=== PATIENT | male | born 1945 | race Hispanic/Latino ===

== ENCOUNTER 2021-12-11 17:24 | Inpatient (IN) | payer MEDICARE ==
[2021-12-11] MEDS ORDERED: SODIUM CHLORIDE 0.9% 1000 ML 1,000 ML IV ONE ×2 (18:54→19:05)
--- NOTE | 2021-12-11 19:17 | XRay Report ---
CHEST 1 VIEW 12/11/2021 7:02 PM INDICATION / CLINICAL INFORMATION: Lightheadedness/Dizziness. COMPARISON: None available. FINDINGS: SUPPORT DEVICES: None. HEART / MEDIASTINUM: No significant abnormality. LUNGS / PLEURA: Bilateral lower lobe opacities. Mild elevation right hemidiaphragm No pneumothorax. Signer Name: Justus Pandey MD Signed: 12/11/2021 7:13 PM Workstation Name: [id number]
[2021-12-11 20:06] LABS: Mean Corpuscular HGB Conc 31 % (32-34); Mean Corpuscular Volume 107 fl (84-94); Platelet Count 132 K/mm3 (140-440); Red Blood Count 4.05 M/mm3 (3.65-5.03)
[2021-12-11 20:07] LABS: Hematocrit 43.4 % (35.5-45.6); Hemoglobin 13.3 gm/dl (11.8-15.2)
--- NOTE | 2021-12-11 20:25 | Emergency Department Report ---
<SONI JERNIGAN - Last Filed: 12/11/21 20:23> ED General Adult HPI - General Chief complaint: Hyperglycemia Stated complaint: AMS/HBS/HYPOTENSION Time Seen by Provider: 12/11/21 19:05 Source: EMS Mode of arrival: Stretcher Limitations: Altered Mental Status, Physical Limitation - History of Present Illness Initial comments: Patient is a 76-year-old male brought in by EMS from hospice for hyperglycemia and tachycardia. Severity scale (0 -10): 0 - Related Data Allergies Allergy/AdvReac Type Severity Reaction Status Date / Time No Known Allergies Allergy Verified 12/11/21 18:29 ED Review of Systems Comment: Unobtainable due to pts medical conditions ED Past Medical Hx - Past Medical History Hx Diabetes: Yes Hx of Cancer: Yes (prostate) Hx Psychiatric Treatment: Yes (bipolar, dipression) Additional medical history: apashia,hemiplegia,epilepsy - Surgical History Additional Surgical History: gtube - Social History Smoking Status: Unknown if ever smoked ED Physical Exam - General Limitations: Altered Mental Status, Physical Limitation General appearance: obtunded - Head Head exam: Present: atraumatic, normocephalic - Respiratory Respiratory exam: Present: other (Kussmaul's respirations) - Cardiovascular Cardiovascular Exam: Present: normal rhythm, tachycardia, normal heart sounds - GI/Abdominal GI/Abdominal exam: Present: soft. Absent: distended - Rectal Rectal exam: Present: deferred - Neurological Exam Neurological exam: Present: altered, other (Patient disoriented) - Skin Skin exam: Present: warm, dry, intact, normal color ED Medical Decision Making - Lab Data Result diagrams: 12/11/21 19:27 ED Disposition Clinical Impression: DKA (diabetic ketoacidosis), HHS (hypothenar hammer syndrome), Pneumonia Disposition: 09 ADMITTED INPATIENT Condition: Stable Instructions: Diabetic Ketoacidosis (ED), Bacterial Pneumonia (ED) Referrals: PRIMARY CARE,MD [Primary Care Provider] - 3-5 Days <CHAGO GONZALES - Last Filed: 12/12/21 05:08> ED Review of Systems ROS: Stated complaint: AMS/HBS/HYPOTENSION Other details as noted in HPI ED Course Vital Signs 12/11/21 12/11/21 12/11/21 18:01 18:16 18:24 Temperature 97.9 F Pulse Rate 92 H 133 H 134 H Respiratory 54 H 56 H 35 H Rate Blood Pressure 110/65 Blood Pressure 93/59 [Left] O2 Sat by Pulse 90 92 Oximetry 12/11/21 12/11/21 12/11/21 18:30 18:46 18:54 Temperature Pulse Rate 134 H 133 H Respiratory 54 H 55 H Rate Blood Pressure 110/65 106/67 Blood Pressure [Left] O2 Sat by Pulse 90 90 99 Oximetry 12/11/21 12/11/21 12/11/21 19:00 19:16 19:28 Temperature Pulse Rate 133 H 134 H Respiratory 49 H 51 H 26 H Rate Blood Pressure 106/67 115/67 Blood Pressure [Left] O2 Sat by Pulse 90 91 93 Oximetry 12/11/21 12/11/21 12/11/21 19:30 19:46 20:00 Temperature Pulse Rate 134 H 141 H 133 H Respiratory 37 H 46 H 46 H Rate Blood Pressure 115/67 109/63 109/63 Blood Pressure [Left] O2 Sat by Pulse 91 91 91 Oximetry 12/11/21 12/11/21 12/11/21 20:16 20:22 20:30 Temperature Pulse Rate 133 H 132 H 133 H Respiratory 53 H 50 H 50 H Rate Blood Pressure 116/69 116/69 116/69 Blood Pressure [Left] O2 Sat by Pulse 91 91 91 Oximetry 12/11/21 12/11/21 12/11/21 20:46 21:00 21:16 Temperature Pulse Rate 131 H 130 H 129 H Respiratory 39 H 49 H 41 H Rate Blood Pressure 115/92 115/92 110/56 Blood Pressure [Left] O2 Sat by Pulse 91 90 91 Oximetry 12/11/21 12/11/21 12/11/21 21:30 21:46 22:00 Temperature Pulse Rate 130 H 127 H Respiratory 30 H 45 H 47 H Rate Blood Pressure 110/56 104/61 104/61 Blood Pressure [Left] O2 Sat by Pulse 91 92 92 Oximetry 12/11/21 12/11/21 12/11/21 22:16 22:30 22:46 Temperature Pulse Rate 127 H 127 H 127 H Respiratory 48 H 44 H 50 H Rate Blood Pressure 91/56 91/56 94/47 Blood Pressure [Left] O2 Sat by Pulse 93 94 93 Oximetry 12/11/21 12/11/21 12/11/21 23:00 23:16 23:30 Temperature Pulse Rate 128 H 128 H 127 H Respiratory 50 H 42 H 52 H Rate Blood Pressure 94/47 113/89 113/89 Blood Pressure [Left] O2 Sat by Pulse 93 87 90 Oximetry 12/11/21 12/12/21 12/12/21 23:45 00:00 00:15 Temperature Pulse Rate 128 H 128 H 127 H Respiratory 34 H 44 H 39 H Rate Blood Pressure 152/124 152/124 160/128 Blood Pressure [Left] O2 Sat by Pulse 93 91 80 L Oximetry 12/12/21 12/12/21 12/12/21 00:30 00:45 01:00 Temperature Pulse Rate 128 H 128 H 130 H Respiratory 45 H 38 H 53 H Rate Blood Pressure 113/89 172/131 172/131 Blood Pressure [Left] O2 Sat by Pulse 91 88 90 Oximetry 12/12/21 12/12/21 12/12/21 01:16 01:30 01:46 Temperature Pulse Rate 136 H 127 H 126 H Respiratory 50 H 42 H 52 H Rate Blood Pressure 172/131 172/131 213/191 Blood Pressure [Left] O2 Sat by Pulse 88 89 90 Oximetry 12/12/21 12/12/21 12/12/21 02:00 02:16 02:30 Temperature Pulse Rate 127 H 126 H 127 H Respiratory 47 H 54 H 46 H Rate Blood Pressure 213/191 213/191 213/191 Blood Pressure [Left] O2 Sat by Pulse 86 88 90 Oximetry 12/12/21 12/12/21 12/12/21 02:46 02:52 03:00 Temperature Pulse Rate 126 H 127 H 94 H Respiratory 50 H 45 H Rate Blood Pressure 213/191 213/182 72/39 Blood Pressure [Left] O2 Sat by Pulse 91 94 Oximetry 12/12/21 03:16 Temperature Pulse Rate 98 H Respiratory 42 H Rate Blood Pressure 72/39 Blood Pressure [Left] O2 Sat by Pulse 94 Oximetry - Reevaluation(s) Reevaluation #1: 12/11/21 21:51 SIGNED OUT FROM MY [place] IS THIS IS A DNR PATIENT FROM HOSPICE BROUGHT IN DUE TO AMS AND ELEVATED GLUCOSE. I HAVE SEEN THE PATIENT MYSELF W/ DR. Osborn AT BEDSIDE; PATIENT AOX0 GCS3. I IMMEDIATELY GOT ON THE PHONE WITH DENNISE SARMIENTO (IN [place]) WHO STATES DNR/I. PER DENNISE, THE HOSPICE PHYSICIAN AND NURSE FOUND PATIENT TO BE IN 'DISTRESS' AND CONFUSED WITH ELEVATED GLUCOSE AND FELT IF PATIENT COMES TO THE HOSPITAL TO BRING THE GLUCOSE DOWN, PATIENT WILL BE LESS DISTRESS. PER DENNISE, THE DECISI ON WAS NOT DISCUSSED WITH HER FIRST BUT LATER WHEN HE WAS IN THE HOSPITAL. PER DENNISE, THEY WILL HOLD THE HOSPICE BED FOR HIM WHEN HE IS READY TO COME BACK. DENNISE STATES THIS APPEARS TO BE ACUTE ONSET PATIENT WAS ALERT AND ORIENTED LAST WEEK AND 'NOT' IN THE PROCESS OF DYING YET FOR HOSPICE. DENNISE WOULD LIKE PATIENT BE ADMITTED AND SEE IF LOWERING THE GLUCOSE WOULD HELP HIS CURRENT STAT E BUT IF IT DOESN'T HELP, GET BACK TO DENNISE AND HAVE PATIENT SEND BACK TO HOSPICE. PENDING REST OF LABS TO RETURN AND THEN I WILL TALK TO HOSPITALIST. - JANET 12/11/21 22:46 SPOKE TO HOSPITALIST REGARDING THE SITUATION; WE WILL ATTEMPT TO BRING THE GLUCOSE DOWN IN THE ER TO SEE IF HE CAN BE DISCHARGED. LOOKING AT PATIENT'S LAB; I WILL CHANGE NS TO LR IMMEDIATELY. PATIENT CONTINUE ON INSULIN DRIP PROTOCOL. RN INFORMED TO CHECK GLUCOSE Q1H AND THEN BMP/MG Q2H. I WILL CONTINUE TO MONITOR. 12/12/21 00:19 ATTEMPTED TO CALL DENNISE AND LET HER KNOW THE PLAN; NO ONE PICKED UP. I WILL CALL AGAIN LATER. 12/12/21 00:44 RN BROUGHT TO MY ATTENTION THAT PATIENT'S BMP; GLUCOSE JUST CAME BACK TO BE IN 900S STILL. PER NURSE, SHE JUST GAVE 10U SQ REGULAR WELL. PER PROTOCOL, WILL GO TO THE NEXT INSULIN COLUMN WHICH IS FROM 11 TO 16 UNITES. NURSE ALSO STATES PATIENT HAVE RECEIVED 1L NS AND NOW IS GETTING 1ST LITER OF LR. I HAVE INFORMED RN TO CONTINUE AND I WILL UPDATE THE DAUGHTER, DENNISE. IF NEXT BLOOD DRAW, THE GLUCOSE DOESN'T DOWN TREND, I WILL CALL HOSPITALIST. CORRECTION; I WILL DISREGARD OUR PROTOL. PER [facility] PATIENT WE WILL DO 500ML/HR CONTINUOUS OF .45% NS AND ALSO 18UNITES NOW PATIENT'S WEIGHT BASE IS 0.1U/KG/HR BUT IF NO IMPROVEMENT, TO DOUBLE THE INSULIN. RN INFORMED. ATTEMPTED TO CALL DAUGHTER ON THE UPDATE BUT NO COMPUTER METEOROLOGIST. I HAVE LEFT VOICE MESSAGE FOR HER TO CALL ME BACK AT [phone]. 12/12/21 00:52 12/12/21 03:14 AFTER DOUBLING THE INSULIN; GLUCOSE NOW IN 492 BUT STILL GAP OF 24; GLUCOSE DOWN TRENDING WITH HAGMA. I WILL OFFICIALLY CALL THE HOSPITALIST NOW AND ALSO LET ICU PHYSICIAN KNOW ABOUT THIS PATIENT. 12/12/21 03:15 ED Medical Decision Making - Lab Data Result diagrams: 12/11/21 19:27 12/12/21 03:25 Critical Care Time: Yes Critical care time in (mins) excluding proc time.: 76 Critical care attestation.: If time is entered above; I have spent that time in minutes in the direct care of this critically ill patient, excluding procedure time. ED Disposition Is pt being admited?: Yes Does the pt Need Aspirin: No Time of Disposition: 03:16
[2021-12-11 20:35] LABS: Alanine Aminotransferase 46 units/L (7-56); Albumin 2.9 g/dL (3.9-5); BUN/Creatinine Ratio 44; Blood Urea Nitrogen 97 mg/dL (9-20); Calcium 8.7 mg/dL (8.4-10.2); Hemolysis Index 2
[2021-12-11] MEDS ORDERED: DEXTROSE 50% IN WATER (25GM) 50 ML SYRINGE IV PRN (20:45)
[2021-12-11] MEDS ORDERED: INSULIN REGULAR, HUMAN 100 UNITS in SODIUM CHLORIDE 0.9% 99 ML IV SCH (21:00)
[2021-12-11] MEDS ORDERED: INSULIN REGULAR, HUMAN 100 UNITS/1 ML SUB-Q ONE (23:53)
[2021-12-11] MEDS ORDERED: LACTATED RINGERS 2,000 ML IV ONE (23:54)
[2021-12-11 23:58] LABS: ABG HCO3 23.3 mmol/L (20.0-26.0); ABG Methemoglobin 0.4 % (0.0-1.5); ABG Oxygen Saturation 97.3 % (95.0-99.0); ABG PCO2 42.1 mm Hg; ABG PH 7.361 pH Units (7.350-7.450); ABG PO2 66.4 mm Hg (80.0-90.0)
[2021-12-12 00:23] LABS: Anisocytosis 1+; Band Neutrophils # (Manual) 1.2 K/mm3; Basophils % (Manual) 0 % (0.0-1.8); Eosinophils % (Manual) 0 % (0.0-4.3); Macrocytosis 1+; Platelet Estimate Consistent w Auto; Total Cells Counted 100
[2021-12-12 00:28] LABS: Calcium 7.8 mg/dL (8.4-10.2)
[2021-12-12] MEDS ORDERED: SODIUM CHLORIDE 0.45% IV SCH (01:00)
[2021-12-12 01:38] LABS: Alanine Aminotransferase 12 units/L (7-56); Albumin 5.1 g/dL (3.9-5); Blood Urea Nitrogen 17 mg/dL (9-20); Hemolysis Index 13
[2021-12-12 01:47] LABS: BUN/Creatinine Ratio 24
[2021-12-12 04:08] LABS: Albumin 2.6 g/dL (3.9-5); Calcium 7.8 mg/dL (8.4-10.2)
[2021-12-12] MEDS ORDERED: ACETAMINOPHEN 650 MG RECT SUPP PR PRN ×2 (04:18→06:32)
[2021-12-12] MEDS ORDERED: MAGNESIUM HYDROXIDE (MOM) ORAL LIQD UDC PO PRN (04:18)
[2021-12-12] MEDS ORDERED: MORPHINE 2 MG/1 ML INJ IV PRN ×2 (04:18→06:32)
[2021-12-12] MEDS ORDERED: ONDANSETRON 4 MG/2 ML INJ IV PRN (04:18)
[2021-12-12] MEDS ORDERED: SODIUM CHLORIDE 0.9% 1000 ML 1,000 ML IV SCH ×2 (04:30→11:00)
--- NOTE | 2021-12-12 04:36 | History and Physical Report ---
History of Present Illness Date of examination: 12/12/21 Date of admission: 12/12/2021 Chief complaint: Elevated blood glucose Tachycardia History of present illness: 76-year-old male resident with known history of diabetes mellitus, bipolar disorder who is currently on hospice brought into the emergency room via EMS today for elevated blood glucose and tachycardia. Most of the history was obtained from the ER staff as patient is unable to give any history at this time Evaluation in the emergency room reveals a blood glucose in the 900s. Patient was found to be in DKA. He has been started on insulin drip and IV fluid. Daughter has the power of corporate associate attorney and indicates that patient is a DNR. Past History Past Medical History: diabetes, other (Prostate cancer, bipolar disorder) Past Surgical History: Other (G-tube placement) Social history: other (Unobtainable) Family history: other (Unobtainable) Medications and Allergies Allergies Allergy/AdvReac Type Severity Reaction Status Date / Time No Known Allergies Allergy Verified 12/11/21 18:29 Active Meds: Active Medications Acetaminophen (Acetaminophen 650 Mg Rect Supp) [address] Q6H PRN PRN Reason: Pain MILD(1-3)/Fever >100.5/MORGAN Dextrose (Dextrose 50% In Water (25gm) 50 Ml Syringe) 0 ml IV Q30MIN PRN; Pro tocol PRN Reason: Hypoglycemia Insulin Human Regular 100 (units/ Sodium Chloride) 100 mls @ 9 mls/hr IV TITR OSMAN; Protocol Last Titration: 12/12/21 03:20 Dose: 8 units/hr, 8 mls/hr Sodium Chloride (Nacl 0.45% 1000 Ml) 2,000 mls @ 500 mls/hr IV DIRECT OSMAN Stop: 12/12/21 04:59 Sodium Chloride (Nacl 0.9% 1000 Ml) 1,000 mls @ 150 mls/hr IV DIRECT OSMAN Potassium Chloride/Dextrose/Sod Cl (D5w/0.45% Nacl/Kcl 20 Meq) 20 meq in 1,000 mls @ 125 mls/hr IV DIRECT OSMAN Magnesium Hydroxide (Magnesium Hydroxide (Mom) Oral Liqd Udc) 30 ml PO Q4H PRN PRN Reason: Constipation Morphine Sulfate (Morphine 2 Mg/1 Ml Inj) 2 mg IV Q4H PRN PRN Reason: Pain, Moderate (4-6) Ondansetron HCl (Ondansetron 4 Mg/2 Ml Inj) 4 mg IV Q8H PRN PRN Reason: Nausea And Vomiting Sodium Chloride (Sodium Chloride 0.9% 10 Ml Flush Syringe) 10 ml IV BID OSMAN Sodium Chloride (Sodium Chloride 0.9% 10 Ml Flush Syringe) 10 ml IV PRN PRN PRN Reason: LINE FLUSH Review of Systems ROS unobtainable: due to mental status Exam - Constitutional Vitals: Temp Pulse Resp BP Pulse Ox 97.9 F 98 H 42 H 72/39 94 12/11/21 18:24 12/12/21 03:16 12/12/21 03:16 12/12/21 03:16 12/12/21 03:16 General appearance: Present: no acute distress, well-nourished - EENT Eyes: Present: PERRL, EOM intact. Absent: scleral icterus ENT: hearing intact, clear oral mucosa, dentition normal - Neck Neck: Present: supple, normal ROM - Respiratory Respiratory effort: normal Respiratory: bilateral: CTA - Cardiovascular Rhythm: regular Heart Sounds: Present: S1 & S2. Absent: gallop, systolic murmur, diastolic murmur, rub, click - Extremities Extremities: no ischemia, pulses intact, pulses symmetrical, No edema, normal temperature, normal color, Full ROM Peripheral Pulses: within normal limits - Abdominal General gastrointestinal: Present: soft, non-tender, non-distended, normal bowel sounds. Absent: mass - Integumentary Integumentary: Present: clear, warm, dry, normal turgor. Absent: rash - Musculoskeletal Musculoskeletal: strength equal bilaterally - Psychiatric Psychiatric: cooperative - Neurologic Neurologic: no focal deficits, moves all extremities, other (Confused) HEART Score - HEART Score Troponin: Troponin T < 0.010 ng/mL (0.00-0.029) 12/11/21 19:27 Results - Labs CBC & Chem 7: 12/11/21 19:27 12/12/21 03:25 Labs: Abnormal lab results 12/11/21 12/11/21 12/11/21 Range/Units 19:00 19:27 19:27 WBC 17.1 H (4.5-11.0) K/mm3 MCV 107 H (84-94) fl MCH 33 H (28-32) pg MCHC 31 L (32-34) % RDW 16.0 H (13.2-15.2) % Plt Count 132 L (140-440) K/mm3 Seg Neuts % (Manual) 84.0 H (40.0-70.0) % Lymphocytes % (Manual) 5.0 L (13.4-35.0) % Seg Neutrophils # Man 14.4 H (1.8-7.7) K/mm3 Lymphocytes # (Manual) 0.9 L (1.2-5.4) K/mm3 ABG pO2 (80.0-90.0) mm Hg ABG Hemoglobin (14.0-18.0) gm/dl Sodium 159 H (137-145) mmol/L Potassium 5.1 H (3.6-5.0) mmol/L Chloride 115.2 H (98-107) mmol/L Carbon Dioxide (22-30) mmol/L BUN 97 H (9-20) mg/dL Creatinine 2.2 H (0.8-1.3) mg/dL Glucose 910 H* (75-100) mg/dL POC Glucose > 600 H (70-105) mg/dL Lactic Acid (0.7-2.0) mmol/L Calcium (8.4-10.2) mg/dL Phosphorus (2.5-4.5) mg/dL Magnesium (1.7-2.3) mg/dL AST 51 H (5-40) units/L Alkaline Phosphatase 160 H (35-129) units/L Total Protein 5.8 L (6.3-8.2) g/dL Albumin 2.9 L (3.9-5) g/dL 12/11/21 12/11/21 12/11/21 Range/Units 19:27 22:38 23:22 WBC (4.5-11.0) K/mm3 MCV (84-94) fl MCH (28-32) pg MCHC (32-34) % RDW (13.2-15.2) % Plt Count (140-440) K/mm3 Seg Neuts % (Manual) (40.0-70.0) % Lymphocytes % (Manual) (13.4-35.0) % Seg Neutrophils # Man (1.8-7.7) K/mm3 Lymphocytes # (Manual) (1.2-5.4) K/mm3 ABG pO2 (80.0-90.0) mm Hg ABG Hemoglobin (14.0-18.0) gm/dl Sodium 159 H (137-145) mmol/L Potassium 5.2 H (3.6-5.0) mmol/L Chloride 117.6 H (98-107) mmol/L Carbon Dioxide (22-30) mmol/L BUN 103 H (9-20) mg/dL Creatinine 2.2 H (0.8-1.3) mg/dL Glucose 938 H* (75-100) mg/dL POC Glucose > 600 H (70-105) mg/dL Lactic Acid 2.90 H* (0.7-2.0) mmol/L Calcium 7.8 L (8.4-10.2) mg/dL Phosphorus 4.90 H (2.5-4.5) mg/dL Magnesium 3.00 H (1.7-2.3) mg/dL AST (5-40) units/L Alkaline Phosphatase (35-129) units/L Total Protein (6.3-8.2) g/dL Albumin (3.9-5) g/dL 12/11/21 12/11/21 12/12/21 Range/Units 23:22 23:40 00:23 WBC (4.5-11.0) K/mm3 MCV (84-94) fl MCH (28-32) pg MCHC (32-34) % RDW (13.2-15.2) % Plt Count (140-440) K/mm3 Seg Neuts % (Manual) (40.0-70.0) % Lymphocytes % (Manual) (13.4-35.0) % Seg Neutrophils # Man (1.8-7.7) K/mm3 Lymphocytes # (Manual) (1.2-5.4) K/mm3 ABG pO2 66.4 L (80.0-90.0) mm Hg ABG Hemoglobin 9.3 L (14.0-18.0) gm/dl Sodium (137-145) mmol/L Potassium (3.6-5.0) mmol/L Chloride (98-107) mmol/L Carbon Dioxide 21 L (22-30) mmol/L BUN (9-20) mg/dL Creatinine 0.7 L D (0.8-1.3) mg/dL Glucose 492 H (75-100) mg/dL POC Glucose (70-105) mg/dL Lactic Acid 3.00 H* (0.7-2.0) mmol/L Calcium (8.4-10.2) mg/dL Phosphorus (2.5-4.5) mg/dL Magnesium (1.7-2.3) mg/dL AST (5-40) units/L Alkaline Phosphatase 683 H (35-129) units/L Total Protein (6.3-8.2) g/dL Albumin 5.1 H (3.9-5) g/dL 12/12/21 12/12/21 Range/Units 03:25 03:25 WBC (4.5-11.0) K/mm3 MCV (84-94) fl MCH (28-32) pg MCHC (32-34) % RDW (13.2-15.2) % Plt Count (140-440) K/mm3 Seg Neuts % (Manual) (40.0-70.0) % Lymphocytes % (Manual) (13.4-35.0) % Seg Neutrophils # Man (1.8-7.7) K/mm3 Lymphocytes # (Manual) (1.2-5.4) K/mm3 ABG pO2 (80.0-90.0) mm Hg ABG Hemoglobin (14.0-18.0) gm/dl Sodium 157 H D (137-145) mmol/L Potassium (3.6-5.0) mmol/L Chloride 117.9 H (98-107) mmol/L Carbon Dioxide (22-30) mmol/L BUN 105 H (9-20) mg/dL Creatinine 2.6 H D (0.8-1.3) mg/dL Glucose 643 H* (75-100) mg/dL POC Glucose (70-105) mg/dL Lactic Acid 5.30 H* (0.7-2.0) mmol/L Calcium 7.8 L D (8.4-10.2) mg/dL Phosphorus (2.5-4.5) mg/dL Magnesium (1.7-2.3) mg/dL AST (5-40) units/L Alkaline Phosphatase 134 H (35-129) units/L Total Protein 5.1 L D (6.3-8.2) g/dL Albumin 2.6 L (3.9-5) g/dL Assessment and Plan Assessment: 1.DKA 2.Tachycardia 3.Confusion 4. History of bipolar disorder Plan: 1.Admitted and placed on insulin drip and fluid 2.Will monitor glucose closely 3. We will resume routine home medications once reconciled. DVT Prophylaxis:SQ Heparin COde Status: DNR
[2021-12-12] MEDS ORDERED: D5W/0.45% NACL/KCL 20 MEQ 20 MEQ/1,000 ML BAG IV SCH (05:00)
[2021-12-12] MEDS ORDERED: MORPHINE 4 MG/1 ML INJ IV PRN (06:32)
[2021-12-12 07:25] LABS: Calcium 8.1 mg/dL (8.4-10.2)
[2021-12-12] MEDS ORDERED: SODIUM CHLORIDE 0.9% 1000 ML 2,000 ML IV ONE (07:35)
[2021-12-12] MEDS ORDERED: SODIUM CHLORIDE 0.9% 1000 ML 2,000 ML IV SCH (08:00)
--- NOTE | 2021-12-12 08:51 | Consultation ---
History of Present Illness Consult date: 12/12/21 Requesting physician: JANET LAU Reason for consult: other (DKA, Metabolic encephalopathy) History of present illness: 76-year-old male resident with known history of diabetes mellitus, bipolar disorder who is currently on hospice brought into the emergency room via EMS today for elevated blood glucose and tachycardia. Most of the history was obtained from the ER staff as patient is unable to give any history at this time Evaluation in the emergency room reveals a blood glucose in the 900s. Patient was found to be in DKA. He has been started on insulin drip and IV fluid. Labs showed leukocytosis. Patient has been having fever of 102.5 F. UA did not reveal any significant pyuria. Chest x-ray showed possible bilateral pneumonia. Altered, unable to provide history. A critical care consult was placed to facilitate admission to the ICU Patient seen and examined in the ED Past History Past Medical History: diabetes, other (Prostate cancer, bipolar disorder) Past Surgical History: Other (G-tube placement) Social history: other (Unobtainable) Family history: other (Unobtainable) Medications and Allergies Allergies Allergy/AdvReac Type Severity Reaction Status Date / Time No Known Allergies Allergy Verified 12/11/21 18:29 Active Meds: Active Medications Acetaminophen (Acetaminophen 650 Mg Rect Supp) 650 mg [place] Q6H PRN PRN Reason: Pain MILD(1-3)/Fever >100.5/MORGAN Last Admin: 12/12/21 08:24 Dose: 650 mg Dextrose (Dextrose 50% In Water (25gm) 50 Ml Syringe) 0 ml IV Q30MIN PRN; Protocol PRN Reason: Hypoglycemia Insulin Human Regular 100 (units/ Sodium Chloride) 100 mls @ 9 mls/hr IV TITR OSMAN; Protocol Last Titration: 12/12/21 07:51 Dose: 3 units/hr, 3 mls/hr Sodium Chloride (Nacl 0.9% 1000 Ml) 1,000 mls @ 150 mls/hr IV DIRECT OSMAN Potassium Chloride/Dextrose/Sod Cl (D5w/0.45% Nacl/Kcl 20 Meq) 20 meq in 1,000 mls @ 125 mls/hr IV DIRECT OSMAN Sodium Chloride (Nacl 0.9% 1000 Ml) 2,000 mls @ 999 mls/hr IV BOLUS OSMAN Stop: 12/12/21 10:35 Magnesium Hydroxide (Magnesium Hydroxide (Mom) Oral Liqd Udc) 30 ml PO Q4H PRN PRN Reason: Constipation Morphine Sulfate (Morphine 2 Mg/1 Ml Inj) 2 mg IV Q4H PRN PRN Reason: Pain, Moderate (4-6) Morphine Sulfate (Morphine 4 Mg/1 Ml Inj) 4 mg IV Q4H PRN PRN Reason: Pain , Severe (7-10) Ondansetron HCl (Ondansetron 4 Mg/2 Ml Inj) 4 mg IV Q8H PRN PRN Reason: Nausea And Vomiting Sodium Chloride (Sodium Chloride 0.9% 10 Ml Flush Syringe) 10 ml IV BID OSMAN Sodium Chloride (Sodium Chloride 0.9% 10 Ml Flush Syringe) 10 ml IV PRN PRN PRN Reason: LINE FLUSH Review of Systems ROS unobtainable: due to mental status Physical Examination Vital signs: Vital Signs Pulse Resp 92 H 54 H 12/11/21 18:01 12/11/21 18:01 General appearance: appears uncomfortable, other (minimally responsive) Eyes: non-icteric ENT: oropharynx dry Neck: supple, no lymphadenopathy, no JVD Effort: mildly labored Ascultation: Bilateral: diminished breath sounds Cardiovascular: regular rate and rhythm, other (S1,S2) Gastrointestinal: normoactive bowel sounds, soft, non-tender Integumentary: other (dry) Extremities: no cyanosis, no edema, pulses normal pupils equal and round, unable to assess Results - Laboratory Findings CBC and BMP: 12/13/21 04:29 12/13/21 04:29 ABG ABG pH 7.361 pH Units (7.350-7.450) 12/11/21 23:40 ABG pCO2 42.1 mm Hg 12/11/21 23:40 ABG pO2 66.4 mm Hg (80.0-90.0) L 12/11/21 23:40 ABG O2 Saturation 97.3 % (95.0-99.0) 12/11/21 23:40 Abnormal lab findings: Abnormal Labs 12/11/21 12/11/21 12/11/21 19:00 19:27 19:27 WBC 17.1 H MCV 107 H MCH 33 H MCHC 31 L RDW 16.0 H Plt Count 132 L Seg Neuts % (Manual) 84.0 H Lymphocytes % (Manual) 5.0 L Seg Neutrophils # Man 14.4 H Lymphocytes # (Manual) 0.9 L ABG pO2 ABG Hemoglobin Sodium 159 H Potassium 5.1 H Chloride 115.2 H Carbon Dioxide BUN 97 H Creatinine 2.2 H Glucose 910 H* POC Glucose > 600 H Lactic Acid Calcium Phosphorus Magnesium AST 51 H Alkaline Phosphatase 160 H Total Protein 5.8 L Albumin 2.9 L 12/11/21 12/11/21 12/11/21 19:27 22:38 23:22 WBC MCV MCH MCHC RDW Plt Count Seg Neuts % (Manual) Lymphocytes % (Manual) Seg Neutrophils # Man Lymphocytes # (Manual) ABG pO2 ABG Hemoglobin Sodium 159 H Potassium 5.2 H Chloride 117.6 H Carbon Dioxide BUN 103 H Creatinine 2.2 H Glucose 938 H* POC Glucose > 600 H Lactic Acid 2.90 H* Calcium 7.8 L Phosphorus 4.90 H Magnesium 3.00 H AST Alkaline Phosphatase Total Protein Albumin 12/11/21 12/11/21 12/12/21 23:22 23:40 00:05 WBC MCV MCH MCHC RDW Plt Count Seg Neuts % (Manual) Lymphocytes % (Manual) Seg Neutrophils # Man Lymphocytes # (Manual) ABG pO2 66.4 L ABG Hemoglobin 9.3 L Sodium Potassium Chloride Carbon Dioxide BUN Creatinine Glucose POC Glucose > 600 H Lactic Acid 3.00 H* Calcium Phosphorus Magnesium AST Alkaline Phosphatase Total Protein Albumin 12/12/21 12/12/21 12/12/21 00:23 03:16 03:25 WBC MCV MCH MCHC RDW Plt Count Seg Neuts % (Manual) Lymphocytes % (Manual) Seg Neutrophils # Man Lymphocytes # (Manual) ABG pO2 ABG Hemoglobin Sodium Potassium Chloride Carbon Dioxide 21 L BUN Creatinine 0.7 L D Glucose 492 H POC Glucose 570 H Lactic Acid 5.30 H* Calcium Phosphorus Magnesium AST Alkaline Phosphatase 683 H Total Protein Albumin 5.1 H 12/12/21 12/12/21 12/12/21 03:25 04:20 05:09 WBC MCV MCH MCHC RDW Plt Count Seg Neuts % (Manual) Lymphocytes % (Manual) Seg Neutrophils # Man Lymphocytes # (Manual) ABG pO2 ABG Hemoglobin Sodium 157 H D Potassium Chloride 117.9 H Carbon Dioxide BUN 105 H Creatinine 2.6 H D Glucose 643 H* POC Glucose 468 H Lactic Acid Calcium 7.8 L D Phosphorus Magnesium 2.80 H AST Alkaline Phosphatase 134 H Total Protein 5.1 L D Albumin 2.6 L 12/12/21 12/12/21 12/12/21 05:30 06:25 06:25 WBC MCV MCH MCHC RDW Plt Count Seg Neuts % (Manual) Lymphocytes % (Manual) Seg Neutrophils # Man Lymphocytes # (Manual) ABG pO2 ABG Hemoglobin Sodium 158 H Potassium Chloride 117.9 H Carbon Dioxide BUN 102 H Creatinine 2.6 H Glucose 241 H POC Glucose 403 H Lactic Acid 3.50 H* Calcium 8.1 L Phosphorus Magnesium AST Alkaline Phosphatase Total Protein Albumin - Diagnostic Findings Chest x-ray: image reviewed Assessment and Plan Severe sepsis: Possibly from pneumonia, Diabetic ketoacidosis: Acute encephalopathy, Hypernatremia, Acute kidney injury Mild LFT elevation Acute thrombocytopenia -Volume resuscitation, serial BMPS, accuchecks, insulin infusion, DKA management per protocol -Aspiration precautions, free water/hypotonic solutions -Empiric antibiotics, de-escalate based on culture data and clinical response -Avoid nephrotoxins, adjust all medications for CrCL -Mobility, off loading frequent turning per facility protocol to prevent pressure wounds -SCDs for VTE prophylaxis -Trend temperature curve, follow WBC -Supplemental oxygen as clinically indicated, keep SpO2 90-92% -Maintain sleep-wake cycle, avoid benzodiazepines if at all able Per documentation patient is DNAR
[2021-12-12 09:54] LABS: Amorphous Crystals,Urine 3+; Bacteria,Urine 1+ /HPF (Negative)
[2021-12-12 09:56] LABS: Color,Urine Yellow (Yellow); Ictotest,Urine Positive (Negative)
[2021-12-12] MEDS ORDERED: DEXTROSE 50% IN WATER (25GM) 50 ML SYRINGE IV PRN (10:48)
[2021-12-12] MEDS ORDERED: VANCOMYCIN PHARMACY TO DOSE IV SCH (11:00)
[2021-12-12] MEDS ORDERED: SIMPLE SYRUP 15 ML FEEDTUBE PRN ×2 (12:34)
[2021-12-12] MEDS ORDERED: LIPASE 10,500/PROTEASE 25,000/AMYLASE 43,750 (UNITS) DR CAP FEEDTUBE PRN (12:34)
[2021-12-12] MEDS ORDERED: SODIUM BICARBONATE 325 MG TAB FEEDTUBE PRN (12:34)
[2021-12-12] MEDS ORDERED: CEFEPIME/NS 2 GM/100 ML 2 GM/100 ML BAG IV SCH (13:00)
[2021-12-12] MEDS ORDERED: LORazepam 2 MG/ML VIAL IV SCH (13:00)
[2021-12-12] MEDS ORDERED: INSULIN REGULAR, HUMAN 100 UNITS/1 ML SUB-Q SCH (13:00)
[2021-12-12] MEDS: INSULIN LISPRO 100 UNIT/ML SUB-Q SCH ×2 (13:06→18:07)
[2021-12-12] MEDS ORDERED: VANCOMYCIN 1,500 MG in SODIUM CHLORIDE 0.9% 500 ML 500 ML IV SCH (14:00)
--- NOTE | 2021-12-12 14:43 | Consultation ---
History of Present Illness - Reason for Consult Consult date: 12/12/21 Sepsis Requesting physician: KIARA SCOTT - History of Present Illness The patient is a 76-year-old male with diabetes, bipolar disorder, on home hospice was admitted with tachycardia and elevated glucose. Upon evaluation in the ED, blood glucose was found to be 910, patient with other electrolyte abnormalities as well. Labs showed leukocytosis. Admitted to the hospital. ID was consulted to evaluate for possible sepsis. Patient has been having fever of 102.5 F. UA did not reveal any significant pyuria. Chest x-ray showed possible bilateral pneumonia. Altered, unable to provide history. Review of Systems: Altered, unable to obtain Past History Past Medical History: diabetes, other (Prostate cancer, bipolar disorder) Past Surgical History: Other (G-tube placement) Social history: other (Unobtainable) Family history: other (Unobtainable) Medications and Allergies Allergies Allergy/AdvReac Type Severity Reaction Status Date / Time No Known Allergies Allergy Verified 12/11/21 18:29 Active Meds: Active Medications Acetaminophen (Acetaminophen 650 Mg Rect Supp) 650 mg FL Q6H PRN PRN Reason: Pain MILD(1-3)/Fever >100.5/MORGAN Last Admin: 12/12/21 08:24 Dose: 650 mg Lipase/Protease/Amylase (Lipase 10,500/Protease 25,000/Amylase 43,750 (Units) Dr Enriquez) 1 each FEEDTUBE PRN PRN PRN Reason: For Clogged Feeding Tube Dextrose (Dextrose 50% In Water (25gm) 50 Ml Syringe) 50 ml IV Q30MIN PRN; Protocol PRN Reason: Hypoglycemia Potassium Chloride/Dextrose/Sod Cl (D5w/0.45% Nacl/Kcl 20 Meq) 20 meq in 1,000 mls @ 125 mls/hr IV DIRECT OSMAN Cefepime HCl (Cefepime/Ns 2 Gm/100 Ml) 2 gm in 100 mls @ 200 mls/hr IV Q24H OSMAN; Protocol Last Admin: 12/12/21 13:02 Dose: 200 mls/hr Vancomycin HCl 1,500 mg/ (Sodium Chloride) 530 mls @ 333.333 mls/hr IV ONCE@1400 OSMAN Stop: 12/12/21 18:00 Insulin Glargine (Insulin Glargine 100 Units/Ml) 15 units SUB-Q QHS OSMAN Insulin Human Lispro (Insulin Lispro 100 Unit/Ml) 0 unit SUB-Q Q6HR OSMAN; Prot ocol Last Admin: 12/12/21 13:06 Dose: 4 unit Insulin Human Regular (Insulin Regular, Human 100 Units/1 Ml) 12 units SUB-Q ONCE@1300 OSMAN Stop: 12/12/21 17:00 Last Admin: 12/12/21 13:06 Dose: 12 units Lorazepam (Lorazepam 2 Mg/Ml Vial) 1 mg IV ONCE@1300 OSMAN Stop: 12/12/21 17:00 Last Admin: 12/12/21 13:48 Dose: 1 mg Magnesium Hydroxide (Magnesium Hydroxide (Mom) Oral Liqd Udc) 30 ml PO Q4H PRN PRN Reason: Constipation Morphine Sulfate (Morphine 2 Mg/1 Ml Inj) 2 mg IV Q4H PRN PRN Reason: Pain, Moderate (4-6) Morphine Sulfate (Morphine 4 Mg/1 Ml Inj) 4 mg IV Q4H PRN PRN Reason: Pain , Severe (7-10) Ondansetron HCl (Ondansetron 4 Mg/2 Ml Inj) 4 mg IV Q8H PRN PRN Reason: Nausea And Vomiting Simple Syrup (Simple Syrup 15 Ml) 15 ml FEEDTUBE PRN PRN PRN Reason: Hypoglycemia Simple Syrup (Simple Syrup 15 Ml) 30 ml FEEDTUBE PRN PRN PRN Reason: Hypoglycemia Sodium Bicarbonate (Sodium Bicarbonate 325 Mg Tab) 325 mg FEEDTUBE PRN PRN PRN Reason: For Clogged Feeding Tube Sodium Chloride (Sodium Chloride 0.9% 10 Ml Flush Syringe) 10 ml IV BID OSMAN Sodium Chloride (Sodium Chloride 0.9% 10 Ml Flush Syringe) 10 ml IV PRN PRN PRN Reason: LINE FLUSH Physical Examination - Physical Exam Narrative exam: Physical Exam: Constitutional: drowsy Head, Ears, Nose: Normocephalic, atraumatic. External ears, nose normal Eyes: Conjunctivae/corneas clear. No icterus. No ptosis. Neck: Supple, no meningeal signs Cardiovascular: S1, S2 + Respiratory: Good air entry, clear to auscultation bilaterally GI: Soft, non-tender; bowel sounds normal. No peritoneal signs Musculoskeletal: No pedal edema, no cyanosis. Skin: No rash or abscess Hem/Lymphatic: No palpable cervical or supraclavicular nodes. No lymphangitis Psych: drowsy Neurological: drowsy - Constitutional Vitals: Vital Signs Temp Pulse Resp BP Pulse Ox 98.7 F 108 H 40 H 99/51 95 12/12/21 13:31 12/12/21 13:31 12/12/21 13:31 12/12/21 13:31 12/12/21 13:31 Temperature -Last 24 Hours Temperature 98.7 F Temperature 101.8 F Temperature 102.5 F Temperature 103.1 F Temperature 97.9 F Results - Labs CBC & Chem 7: 12/11/21 19:27 12/12/21 06:25 Labs: Abnormal lab results 12/11/21 12/11/21 12/11/21 Range/Units 19:00 19:27 19:27 WBC 17.1 H (4.5-11.0) K/mm3 MCV 107 H (84-94) fl MCH 33 H (28-32) pg MCHC 31 L (32-34) % RDW 16.0 H (13.2-15.2) % Plt Count 132 L (140-440) K/mm3 Seg Neuts % (Manual) 84.0 H (40.0-70.0) % Lymphocytes % (Manual) 5.0 L (13.4-35.0) % Seg Neutrophils # Man 14.4 H (1.8-7.7) K/mm3 Lymphocytes # (Manual) 0.9 L (1.2-5.4) K/mm3 ABG pO2 (80.0-90.0) mm Hg ABG Hemoglobin (14.0-18.0) gm/dl Sodium 159 H (137-145) mmol/L Potassium 5.1 H (3.6-5.0) mmol/L Chloride 115.2 H (98-107) mmol/L Carbon Dioxide (22-30) mmol/L BUN 97 H (9-20) mg/dL Creatinine 2.2 H (0.8-1.3) mg/dL Glucose 910 H* (75-100) mg/dL POC Glucose > 600 H (70-105) mg/dL Lactic Acid (0.7-2.0) mmol/L Calcium (8.4-10.2) mg/dL Phosphorus (2.5-4.5) mg/dL Magnesium (1.7-2.3) mg/dL AST 51 H (5-40) units/L Alkaline Phosphatase 160 H (35-129) units/L Total Protein 5.8 L (6.3-8.2) g/dL Albumin 2.9 L (3.9-5) g/dL Urine WBC (Auto) (0.0-6.0) /HPF 12/11/21 12/11/21 12/11/21 Range/Units 19:27 22:38 23:22 WBC (4.5-11.0) K/mm3 MCV (84-94) fl MCH (28-32) pg MCHC (32-34) % RDW (13.2-15.2) % Plt Count (140-440) K/mm3 Seg Neuts % (Manual) (40.0-70.0) % Lymphocytes % (Manual) (13.4-35.0) % Seg Neutrophils # Man (1.8-7.7) K/mm3 Lymphocytes # (Manual) (1.2-5.4) K/mm3 ABG pO2 (80.0-90.0) mm Hg ABG Hemoglobin (14.0-18.0) gm/dl Sodium 159 H (137-145) mmol/L Potassium 5.2 H (3.6-5.0) mmol/L Chloride 117.6 H (98-107) mmol/L Carbon Dioxide (22-30) mmol/L BUN 103 H (9-20) mg/dL Creatinine 2.2 H (0.8-1.3) mg/dL Glucose 938 H* (75-100) mg/dL POC Glucose > 600 H (70-105) mg/dL Lactic Acid 2.90 H* (0.7-2.0) mmol/L Calcium 7.8 L (8.4-10.2) mg/dL Phosphorus 4.90 H (2.5-4.5) mg/dL Magnesium 3.00 H (1.7-2.3) mg/dL AST (5-40) units/L Alkaline Phosphatase (35-129) units/L Total Protein (6.3-8.2) g/dL Albumin (3.9-5) g/dL Urine WBC (Auto) (0.0-6.0) /HPF 12/11/21 12/11/21 12/12/21 Range/Units 23:22 23:40 00:05 WBC (4.5-11.0) K/mm3 MCV (84-94) fl MCH (28-32) pg MCHC (32-34) % RDW (13.2-15.2) % Plt Count (140-440) K/mm3 Seg Neuts % (Manual) (40.0-70.0) % Lymphocytes % (Manual) (13.4-35.0) % Seg Neutrophils # Man (1.8-7.7) K/mm3 Lymphocytes # (Manual) (1.2-5.4) K/mm3 ABG pO2 66.4 L (80.0-90.0) mm Hg ABG Hemoglobin 9.3 L (14.0-18.0) gm/dl Sodium (137-145) mmol/L Potassium (3.6-5.0) mmol/L Chloride (98-107) mmol/L Carbon Dioxide (22-30) mmol/L BUN (9-20) mg/dL Creatinine (0.8-1.3) mg/dL Glucose (75-100) mg/dL POC Glucose > 600 H (70-105) mg/dL Lactic Acid 3.00 H* (0.7-2.0) mmol/L Calcium (8.4-10.2) mg/dL Phosphorus (2.5-4.5) mg/dL Magnesium (1.7-2.3) mg/dL AST (5-40) units/L Alkaline Phosphatase (35-129) units/L Total Protein (6.3-8.2) g/dL Albumin (3.9-5) g/dL Urine WBC (Auto) (0.0-6.0) /HPF 12/12/21 12/12/21 12/12/21 Range/Units 00:23 03:16 03:25 WBC (4.5-11.0) K/mm3 MCV (84-94) fl MCH (28-32) pg MCHC (32-34) % RDW (13.2-15.2) % Plt Count (140-440) K/mm3 Seg Neuts % (Manual) (40.0-70.0) % Lymphocytes % (Manual) (13.4-35.0) % Seg Neutrophils # Man (1.8-7.7) K/mm3 Lymphocytes # (Manual) (1.2-5.4) K/mm3 ABG pO2 (80.0-90.0) mm Hg ABG Hemoglobin (14.0-18.0) gm/dl Sodium (137-145) mmol/L Potassium (3.6-5.0) mmol/L Chloride (98-107) mmol/L Carbon Dioxide 21 L (22-30) mmol/L BUN (9-20) mg/dL Creatinine 0.7 L D (0.8-1.3) mg/dL Glucose 492 H (75-100) mg/dL POC Glucose 570 H (70-105) mg/dL Lactic Acid 5.30 H* (0.7-2.0) mmol/L Calcium (8.4-10.2) mg/dL Phosphorus (2.5-4.5) mg/dL Magnesium (1.7-2.3) mg/dL AST (5-40) units/L Alkaline Phosphatase 683 H (35-129) units/L Total Protein (6.3-8.2) g/dL Albumin 5.1 H (3.9-5) g/dL Urine WBC (Auto) (0.0-6.0) /HPF 12/12/21 12/12/21 12/12/21 Range/Units 03:25 04:20 05:09 WBC (4.5-11.0) K/mm3 MCV (84-94) fl MCH (28-32) pg MCHC (32-34) % RDW (13.2-15.2) % Plt Count (140-440) K/mm3 Seg Neuts % (Manual) (40.0-70.0) % Lymphocytes % (Manual) (13.4-35.0) % Seg Neutrophils # Man (1.8-7.7) K/mm3 Lymphocytes # (Manual) (1.2-5.4) K/mm3 ABG pO2 (80.0-90.0) mm Hg ABG Hemoglobin (14.0-18.0) gm/dl Sodium 157 H D (137-145) mmol/L Potassium (3.6-5.0) mmol/L Chloride 117.9 H (98-107) mmol/L Carbon Dioxide (22-30) mmol/L BUN 105 H (9-20) mg/dL Creatinine 2.6 H D (0.8-1.3) mg/dL Glucose 643 H* (75-100) mg/dL POC Glucose 468 H (70-105) mg/dL Lactic Acid (0.7-2.0) mmol/L Calcium 7.8 L D (8.4-10.2) mg/dL Phosphorus (2.5-4.5) mg/dL Magnesium 2.80 H (1.7-2.3) mg/dL AST (5-40) units/L Alkaline Phosphatase 134 H (35-129) units/L Total Protein 5.1 L D (6.3-8.2) g/dL Albumin 2.6 L (3.9-5) g/dL Urine WBC (Auto) (0.0-6.0) /HPF 12/12/21 12/12/21 12/12/21 Range/Units 05:30 06:25 06:25 WBC (4.5-11.0) K/mm3 MCV (84-94) fl MCH (28-32) pg MCHC (32-34) % RDW (13.2-15.2) % Plt Count (140-440) K/mm3 Seg Neuts % (Manual) (40.0-70.0) % Lymphocytes % (Manual) (13.4-35.0) % Seg Neutrophils # Man (1.8-7.7) K/mm3 Lymphocytes # (Manual) (1.2-5.4) K/mm3 ABG pO2 (80.0-90.0) mm Hg ABG Hemoglobin (14.0-18.0) gm/dl Sodium 158 H (137-145) mmol/L Potassium (3.6-5.0) mmol/L Chloride 117.9 H (98-107) mmol/L Carbon Dioxide (22-30) mmol/L BUN 102 H (9-20) mg/dL Creatinine 2.6 H (0.8-1.3) mg/dL Glucose 241 H (75-100) mg/dL POC Glucose 403 H (70-105) mg/dL Lactic Acid 3.50 H* (0.7-2.0) mmol/L Calcium 8.1 L (8.4-10.2) mg/dL Phosphorus (2.5-4.5) mg/dL Magnesium (1.7-2.3) mg/dL AST (5-40) units/L Alkaline Phosphatase (35-129) units/L Total Protein (6.3-8.2) g/dL Albumin (3.9-5) g/dL Urine WBC (Auto) (0.0-6.0) /HPF 12/12/21 12/12/21 12/12/21 Range/Units 07:51 09:36 10:03 WBC (4.5-11.0) K/mm3 MCV (84-94) fl MCH (28-32) pg MCHC (32-34) % RDW (13.2-15.2) % Plt Count (140-440) K/mm3 Seg Neuts % (Manual) (40.0-70.0) % Lymphocytes % (Manual) (13.4-35.0) % Seg Neutrophils # Man (1.8-7.7) K/mm3 Lymphocytes # (Manual) (1.2-5.4) K/mm3 ABG pO2 (80.0-90.0) mm Hg ABG Hemoglobin (14.0-18.0) gm/dl Sodium (137-145) mmol/L Potassium (3.6-5.0) mmol/L Chloride (98-107) mmol/L Carbon Dioxide (22-30) mmol/L BUN (9-20) mg/dL Creatinine (0.8-1.3) mg/dL Glucose (75-100) mg/dL POC Glucose 188 H 109 H (70-105) mg/dL Lactic Acid (0.7-2.0) mmol/L Calcium (8.4-10.2) mg/dL Phosphorus (2.5-4.5) mg/dL Magnesium (1.7-2.3) mg/dL AST (5-40) units/L Alkaline Phosphatase (35-129) units/L Total Protein (6.3-8.2) g/dL Albumin (3.9-5) g/dL Urine WBC (Auto) 7.0 H (0.0-6.0) /HPF 12/12/21 12/12/21 Range/Units 11:04 12:32 WBC (4.5-11.0) K/mm3 MCV (84-94) fl MCH (28-32) pg MCHC (32-34) % RDW (13.2-15.2) % Plt Count (140-440) K/mm3 Seg Neuts % (Manual) (40.0-70.0) % Lymphocytes % (Manual) (13.4-35.0) % Seg Neutrophils # Man (1.8-7.7) K/mm3 Lymphocytes # (Manual) (1.2-5.4) K/mm3 ABG pO2 (80.0-90.0) mm Hg ABG Hemoglobin (14.0-18.0) gm/dl Sodium (137-145) mmol/L Potassium (3.6-5.0) mmol/L Chloride (98-107) mmol/L Carbon Dioxide (22-30) mmol/L BUN (9-20) mg/dL Creatinine (0.8-1.3) mg/dL Glucose (75-100) mg/dL POC Glucose 168 H 242 H (70-105) mg/dL Lactic Acid (0.7-2.0) mmol/L Calcium (8.4-10.2) mg/dL Phosphorus (2.5-4.5) mg/dL Magnesium (1.7-2.3) mg/dL AST (5-40) units/L Alkaline Phosphatase (35-129) units/L Total Protein (6.3-8.2) g/dL Albumin (3.9-5) g/dL Urine WBC (Auto) (0.0-6.0) /HPF - Imaging and Cardiology Chest x-ray: report reviewed, image reviewed (mild bibasilar opacities) Assessment and Plan Cultures: COVID-19 PCR: Negative 12/11/2021 blood culture: In process A/P: 76-year-old male with diabetes, bipolar disorder, on home hospice was admitted with tachycardia and elevated glucose: #Severe sepsis: Possibly from pneumonia, ?aspiration. UA did not reveal any significant pyuria. #Diabetic ketoacidosis: Upon evaluation in the ED, blood glucose was found to be 910, patient with other electrolyte abnormalities as well #Acute encephalopathy, hypernatremia, acute kidney injury #Mild LFT elevation: Probably from sepsis. Monitor for now #Acute thrombocytopenia Recs: -Continue empiric cefepime, vancomycin, renally dosed for now -monitor platelets and LFTs Paris Marcos MD, FACP, [facility] O: [phone] F: [phone] C: [phone]
--- NOTE | 2021-12-12 15:13 | Event Note ---
Date: 12/12/21 Patient seen and examined initially aggressive treatment was initiated once we got a hold of the family. But the and the daughter in agreement that they only want hospice for the patient's. Considering his clinical condition he is unsafe to go to SNF with hospice but will require an inpatient hospice. Case management was contacted and COVID test was done which is negative. Inpatient hospice facility is processing documents. Patient remains a DNR and transitions to comfort care. We will start patient on Xanax via PEG tube every 2 hours as needed for anxiety. We will downgrade to telemetry at this time. We will put in discharge orders once accepted into hospice and a bed is available. 35 minutes critical care planning followed by 60 minutes advance care planning
[2021-12-12] MEDS ORDERED: ALPRAZolam 0.5 MG TAB PO PRN (18:00)
[2021-12-12] MEDS ORDERED: INSULIN GLARGINE 100 UNITS/ML SUB-Q SCH (22:00)
[2021-12-13 00:09] LABS: Calcium 7.2 mg/dL (8.4-10.2)
[2021-12-13] MEDS: INSULIN LISPRO 100 UNIT/ML SUB-Q SCH ×2 (00:45→06:18)
[2021-12-13] MEDS ORDERED: LACTATED RINGERS 2,000 ML IV ONE (01:23)
[2021-12-13 04:11] VITALS: BP 90/52
[2021-12-13 05:31] LABS: Hematocrit 32.1 % (35.5-45.6); Mean Corpuscular HGB Conc 31 % (32-34); Mean Corpuscular Volume 103 fl (84-94); Red Blood Count 3.11 M/mm3 (3.65-5.03); Red Cell Distribution Width 14.3 % (13.2-15.2)
[2021-12-13 05:32] LABS: Platelet Count 71 K/mm3 (140-440)
[2021-12-13 05:45] LABS: Calcium 7.2 mg/dL (8.4-10.2)
[2021-12-13 06:35] LABS: Band Neutrophils # (Manual) 0.1 K/mm3; Basophils % (Manual) 0 % (0.0-1.8); Eosinophils % (Manual) 0 % (0.0-4.3); Platelet Estimate Consistent w Auto; Total Cells Counted 100
[2021-12-13] MEDS ORDERED: INSULIN REGULAR, HUMAN 100 UNITS/1 ML SUB-Q NR (07:40)
--- NOTE | 2021-12-13 07:42 | Discharge Summary ---
Providers - Providers Date of Admission: 12/12/21 06:32 Attending physician: KIARA SOCTT MD 12/12/21 04:18 Consult to Dietitian/Nutrition [CONS] Routine Physician Instructions: Reason For Exam: Reason for Consult: Write/Manage Tube Feeding Consult to Dietitian/Nutrition [CONS] Routine Physician Instructions: Reason For Exam: DKA Reason for Consult: Nutrition Recommendations Reason for Consult: Diet education Consult to Physician [CONS] Routine Comment: Consulting Provider: SONG WILSON Physician Instructions: Reason For Exam: DKA on Insulin drip 12/12/21 09:26 Consult to Physician [CONS] Routine Comment: Consulting Provider: ABIODUN ALCARAZ Physician Instructions: Reason For Exam: sepsis Primary care physician: ANESTHETIC ASSISTANT Hospitalization Reason for admission: DKA Condition: Stable Hospital course: 76-year-old male resident with known history of diabetes mellitus, bipolar disorder who is currently on hospice brought into the emergency room via EMS today for elevated blood glucose and tachycardia. Most of the history was obtained from the ER staff as patient is unable to give any history at this time Evaluation in the emergency room reveals a blood glucose in the 900s. Patient was found to be in DKA. He has been started on insulin drip and IV fluid. Daughter has the power of air brakes inspector and indicates that patient is a DNR. Past History Past Medical History: diabetes, other (Prostate cancer, bipolar disorder) Past Surgical History: Other (G-tube placement) Social history: other (Unobtainable) Family history: other (Unobtainable) Patient on admission was started on DKA protocol. Extensive review of clinical diagnosis of severe sepsis with also hypotension requiring fluid resuscitation. We did discuss with the spouse was at bedside and also with the daughter who was in route from [place] and discussed treatment options and alternatives. Family elected to continue DNR also elected for inpatient admission to hospice. Patient was discharged but unfortunately documentation for admission to inpatient hospice was not completed by family as a result patient was monitored overnight on comfort measures with antibiotics temporarily and fluids to keep the patient comfortable also with Ativan and morphine. The patient did have significant tremors for which the patient the family requested the Ativan and also the morphine for comfort care. This morning patient is clinically rested restful no tremors is noted. Blood pressure mildly low. Gentle hydration continue per family request. Awaiting transfer to inpatient hospice. ID input while in the hospital was appreciated #Severe sepsis: #Possibly from pneumonia, -aspiration. #Diabetic ketoacidosis: #Uncontrolled diabetes mellitus #Acute encephalopathy, # hypernatremia, #Acute kidney injury #Mild LFT elevation: Probably from sepsis. Monitor for now #Prostate cancer #Acute thrombocytopenia #History of bipolar disorder Disposition: 51 HOSPICE/MEDICAL FACILITY Final Discharge Diagnosis (Prints w/discharge instructions): #Severe sepsis: #Possibly from pneumonia, -aspiration. #Diabetic ketoacidosis: #Uncontrolled diabetes mellitus. #Acute encephalopathy,. # hypernatremia,. #Acute kidney injury. #Mild LFT elevation: Probably from sepsis. Monitor for now. #Prostate cancer. #Acute thrombocytopenia. #History of bipolar disorder Time spent for discharge: 35 MINS Core Measure Documentation - Palliative Care Palliative Care/ Comfort Measures: Hospice Care Exam - Physical Exam Narrative exam: VITAL SIGNS: Reviewed. GENERAL: The patient appears normally chronically ill and debilitated vital signs as documented. HEAD: No signs of head trauma. EYES: Pupils are equal. Extraocular motions intact. EARS: Hearing grossly intact. MOUTH: Oropharynx is normal. NECK: No adenopathy, no JVD. CHEST: Chest with clear breath sounds bilaterally. No wheezes, rales, or rhonchi. CARDIAC: Regular rate and rhythm. S1 and S2, without murmurs, gallops, or rubs. VASCULAR: No Edema. Peripheral pulses normal and equal in all extremities. ABDOMEN: Soft, non tender and non distended. No rebound or guarding, and no masses palpated. Bowel Sounds normal. MUSCULOSKELETAL: Good range of motion of all major joints. Extremities without clubbing, cyanosis or edema. NEUROLOGIC EXAM: Awake responsive but otherwise disoriented no focal sensory or strength deficits. Follows some commands. PSYCHIATRIC unable to examine due to confusion SKIN: detail exam as documented in skin assessment - Constitutional Vitals: Temp Pulse Resp BP Pulse Ox 98.4 F 98 H 18 90/52 98 12/13/21 04:06 12/13/21 04:06 12/13/21 04:47 12/13/21 04:06 12/13/21 04:47 Plan Care Plan Goals: further management per Hospice team Follow up with: PRIMARY MD AYAKA [Primary Care Provider] - 3-5 Days
[2021-12-13] MEDS ORDERED: SODIUM CHLORIDE 0.45% 1000 ML 1,000 ML IV SCH (08:00)
--- NOTE | 2021-12-13 09:52 | Progress Note ---
Assessment and Plan Cultures: COVID-19 PCR: Negative 12/11/2021 blood culture: no growth so far A/P: 76-year-old male with diabetes, bipolar disorder, on home hospice was admitted with tachycardia and elevated glucose: #Severe sepsis: Possibly from pneumonia, ?aspiration. UA did not reveal any significant pyuria. #Diabetic ketoacidosis: Upon evaluation in the ED, blood glucose was found to be 910, patient with other electrolyte abnormalities as well #Acute encephalopathy, hypernatremia, acute kidney injury #Mild LFT elevation: Probably from sepsis. Monitor for now #Acute thrombocytopenia Recs: -noted plans for discharge on hospice, would discontinue abx Will sign off. Paris Marcos MD, FACP, [facility] O: [phone] F: [phone] C: [phone] Subjective Date of service: 12/13/21 Interval history: Afebrile. Unresponsive. Noted plans for hospice. Objective - Exam Narrative Exam: Physical Exam: Constitutional: drowsy Head, Ears, Nose: Normocephalic, atraumatic. External ears, nose normal Eyes: Conjunctivae/corneas clear. No icterus. No ptosis. Neck: Supple, no meningeal signs Cardiovascular: S1, S2 + Respiratory: Good air entry, clear to auscultation bilaterally GI: Soft, non-tender; bowel sounds normal. No peritoneal signs Musculoskeletal: No pedal edema, no cyanosis. Skin: No rash or abscess Hem/Lymphatic: No palpable cervical or supraclavicular nodes. No lymphangitis Psych: drowsy Neurological: drowsy - Constitutional Vitals: Vital Signs Temp Pulse Resp BP Pulse Ox 98.4 F 98 H 18 90/52 98 12/13/21 04:06 12/13/21 04:06 12/13/21 04:47 12/13/21 04:06 12/13/21 04:47 Temperature -Last 24 Hours Temperature 98.4 F Temperature 98.5 F Temperature 98.7 F Temperature 98.4 F Temperature 98.7 F Temperature 98.7 F Temperature 101.8 F Temperature 102.5 F - Labs CBC & Chem 7: 12/13/21 04:29 12/13/21 04:29 Labs: Abnormal lab results 08/12/12/21 12/12/21 Range/Units 07:51 09:36 10:03 RBC (3.65-5.03) M/mm3 Hgb (11.8-15.2) gm/dl Hct (35.5-45.6) % MCV (84-94) fl MCHC (32-34) % Plt Count (140-440) K/mm3 Seg Neuts % (Manual) (40.0-70.0) % Lymphocytes % (Manual) (13.4-35.0) % Seg Neutrophils # Man (1.8-7.7) K/mm3 Lymphocytes # (Manual) (1.2-5.4) K/mm3 Sodium (137-145) mmol/L Chloride (98-107) mmol/L BUN (9-20) mg/dL Creatinine (0.8-1.3) mg/dL Glucose (75-100) mg/dL POC Glucose 188 H 109 H (70-105) mg/dL Lactic Acid (0.7-2.0) mmol/L Calcium (8.4-10.2) mg/dL Urine WBC (Auto) 7.0 H (0.0-6.0) /HPF 12/12/21 12/12/21 12/12/21 Range/Units 11:04 12:32 17:08 RBC (3.65-5.03) M/mm3 Hgb (11.8-15.2) gm/dl Hct (35.5-45.6) % MCV (84-94) fl MCHC (32-34) % Plt Count (140-440) K/mm3 Seg Neuts % (Manual) (40.0-70.0) % Lymphocytes % (Manual) (13.4-35.0) % Seg Neutrophils # Man (1.8-7.7) K/mm3 Lymphocytes # (Manual) (1.2-5.4) K/mm3 Sodium (137-145) mmol/L Chloride (98-107) mmol/L BUN (9-20) mg/dL Creatinine (0.8-1.3) mg/dL Glucose (75-100) mg/dL POC Glucose 168 H 242 H 248 H (70-105) mg/dL Lactic Acid (0.7-2.0) mmol/L Calcium (8.4-10.2) mg/dL Urine WBC (Auto) (0.0-6.0) /HPF 12/12/21 12/12/21 12/12/21 Range/Units 23:30 23:30 23:45 RBC (3.65-5.03) M/mm3 Hgb (11.8-15.2) gm/dl Hct (35.5-45.6) % MCV (84-94) fl MCHC (32-34) % Plt Count (140-440) K/mm3 Seg Neuts % (Manual) (40.0-70.0) % Lymphocytes % (Manual) (13.4-35.0) % Seg Neutrophils # Man (1.8-7.7) K/mm3 Lymphocytes # (Manual) (1.2-5.4) K/mm3 Sodium 162 H* (137-145) mmol/L Chloride 121.5 H (98-107) mmol/L BUN 122 H (9-20) mg/dL Creatinine 3.2 H (0.8-1.3) mg/dL Glucose 309 H (75-100) mg/dL POC Glucose 291 H (70-105) mg/dL Lactic Acid 2.50 H* (0.7-2.0) mmol/L Calcium 7.2 L (8.4-10.2) mg/dL Urine WBC (Auto) (0.0-6.0) /HPF 12/13/21 12/13/21 12/13/21 Range/Units 04:29 04:29 05:20 RBC 3.11 L (3.65-5.03) M/mm3 Hgb 10.0 L D (11.8-15.2) gm/dl Hct 32.1 L D (35.5-45.6) % MCV 103 H (84-94) fl MCHC 31 L (32-34) % Plt Count 71 L (140-440) K/mm3 Seg Neuts % (Manual) 97.0 H (40.0-70.0) % Lymphocytes % (Manual) 0 L (13.4-35.0) % Seg Neutrophils # Man 9.6 H (1.8-7.7) K/mm3 Lymphocytes # (Manual) 0.0 L (1.2-5.4) K/mm3 Sodium 161 H* (137-145) mmol/L Chloride 121.1 H (98-107) mmol/L BUN 124 H (9-20) mg/dL Creatinine 3.0 H (0.8-1.3) mg/dL Glucose 400 H (75-100) mg/dL POC Glucose 352 H (70-105) mg/dL Lactic Acid (0.7-2.0) mmol/L Calcium 7.2 L (8.4-10.2) mg/dL Urine WBC (Auto) (0.0-6.0) /HPF
--- NOTE | 2021-12-13 12:55 | Progress Note ---
Assessment and Plan - Patient Problems (1) DKA (diabetic ketoacidosis) Status: Acute (2) HHS (hypothenar hammer syndrome) Status: Acute (3) Pneumonia Status: Acute Subjective Date of service: 12/13/21 Interval history: Patient discharged, before I see the patient. Objective Vital Signs - 12hr 12/13/21 12/13/21 04:06 04:47 Temperature 98.4 F Pulse Rate 98 H Respiratory 19 18 Rate Blood Pressure 90/52 O2 Sat by Pulse 99 98 Oximetry CBC and BMP: 12/13/21 04:29 12/13/21 04:29 ABG, PT/INR, D-dimer: ABG ABG pH 7.361 pH Units (7.350-7.450) 12/11/21 23:40 ABG pCO2 42.1 mm Hg 12/11/21 23:40 ABG pO2 66.4 mm Hg (80.0-90.0) L 12/11/21 23:40 ABG O2 Saturation 97.3 % (95.0-99.0) 12/11/21 23:40 Abnormal lab findings: Abnormal Labs 12/11/21 12/11/21 12/11/21 19:00 19:27 19:27 WBC 17.1 H RBC Hgb Hct MCV 107 H MCH 33 H MCHC 31 L RDW 16.0 H Plt Count 132 L Seg Neuts % (Manual) 84.0 H Lymphocytes % (Manual) 5.0 L Seg Neutrophils # Man 14.4 H Lymphocytes # (Manual) 0.9 L ABG pO2 ABG Hemoglobin Sodium 159 H Potassium 5.1 H Chloride 115.2 H Carbon Dioxide BUN 97 H Creatinine 2.2 H Glucose 910 H* POC Glucose > 600 H Lactic Acid Calcium Phosphorus Magnesium AST 51 H Alkaline Phosphatase 160 H Total Protein 5.8 L Albumin 2.9 L Urine WBC (Auto) 12/11/21 12/11/21 12/11/21 19:27 22:38 23:22 WBC RBC Hgb Hct MCV MCH MCHC RDW Plt Count Seg Neuts % (Manual) Lymphocytes % (Manual) Seg Neutrophils # Man Lymphocytes # (Manual) ABG pO2 ABG Hemoglobin Sodium 159 H Potassium 5.2 H Chloride 117.6 H Carbon Dioxide BUN 103 H Creatinine 2.2 H Glucose 938 H* POC Glucose > 600 H Lactic Acid 2.90 H* Calcium 7.8 L Phosphorus 4.90 H Magnesium 3.00 H AST Alkaline Phosphatase Total Protein Albumin Urine WBC (Auto) 12/11/21 12/11/21 12/12/21 23:22 23:40 00:05 WBC RBC Hgb Hct MCV MCH MCHC RDW Plt Count Seg Neuts % (Manual) Lymphocytes % (Manual) Seg Neutrophils # Man Lymphocytes # (Manual) ABG pO2 66.4 L ABG Hemoglobin 9.3 L Sodium Potassium Chloride Carbon Dioxide BUN Creatinine Glucose POC Glucose > 600 H Lactic Acid 3.00 H* Calcium Phosphorus Magnesium AST Alkaline Phosphatase Total Protein Albumin Urine WBC (Auto) 12/12/21 12/12/21 12/12/21 00:23 03:16 03:25 WBC RBC Hgb Hct MCV MCH MCHC RDW Plt Count Seg Neuts % (Manual) Lymphocytes % (Manual) Seg Neutrophils # Man Lymphocytes # (Manual) ABG pO2 ABG Hemoglobin Sodium Potassium Chloride Carbon Dioxide 21 L BUN Creatinine 0.7 L D Glucose 492 H POC Glucose 570 H Lactic Acid 5.30 H* Calcium Phosphorus Magnesium AST Alkaline Phosphatase 683 H Total Protein Albumin 5.1 H Urine WBC (Auto) 12/12/21 12/12/21 12/12/21 03:25 04:20 05:09 WBC RBC Hgb Hct MCV MCH MCHC RDW Plt Count Seg Neuts % (Manual) Lymphocytes % (Manual) Seg Neutrophils # Man Lymphocytes # (Manual) ABG pO2 ABG Hemoglobin Sodium 157 H D Potassium Chloride 117.9 H Carbon Dioxide BUN 105 H Creatinine 2.6 H D Glucose 643 H* POC Glucose 468 H Lactic Acid Calcium 7.8 L D Phosphorus Magnesium 2.80 H AST Alkaline Phosphatase 134 H Total Protein 5.1 L D Albumin 2.6 L Urine WBC (Auto) 12/12/21 12/12/21 12/12/21 05:30 06:25 06:25 WBC RBC Hgb Hct MCV MCH MCHC RDW Plt Count Seg Neuts % (Manual) Lymphocytes % (Manual) Seg Neutrophils # Man Lymphocytes # (Manual) ABG pO2 ABG Hemoglobin Sodium 158 H Potassium Chloride 117.9 H Carbon Dioxide BUN 102 H Creatinine 2.6 H Glucose 241 H POC Glucose 403 H Lactic Acid 3.50 H* Calcium 8.1 L Phosphorus Magnesium AST Alkaline Phosphatase Total Protein Albumin Urine WBC (Auto) 12/12/21 12/12/21 12/12/21 07:51 09:36 10:03 WBC RBC Hgb Hct MCV MCH MCHC RDW Plt Count Seg Neuts % (Manual) Lymphocytes % (Manual) Seg Neutrophils # Man Lymphocytes # (Manual) ABG pO2 ABG Hemoglobin Sodium Potassium Chloride Carbon Dioxide BUN Creatinine Glucose POC Glucose 188 H 109 H Lactic Acid Calcium Phosphorus Magnesium AST Alkaline Phosphatase Total Protein Albumin Urine WBC (Auto) 7.0 H 12/12/21 12/12/21 12/12/21 11:04 12:32 17:08 WBC RBC Hgb Hct MCV MCH MCHC RDW Plt Count Seg Neuts % (Manual) Lymphocytes % (Manual) Seg Neutrophils # Man Lymphocytes # (Manual) ABG pO2 ABG Hemoglobin Sodium Potassium Chloride Carbon Dioxide BUN Creatinine Glucose POC Glucose 168 H 242 H 248 H Lactic Acid Calcium Phosphorus Magnesium AST Alkaline Phosphatase Total Protein Albumin Urine WBC (Auto) 12/12/21 12/12/21 12/12/21 23:30 23:30 23:45 WBC RBC Hgb Hct MCV MCH MCHC RDW Plt Count Seg Neuts % (Manual) Lymphocytes % (Manual) Seg Neutrophils # Man Lymphocytes # (Manual) ABG pO2 ABG Hemoglobin Sodium 162 H* Potassium Chloride 121.5 H Carbon Dioxide BUN 122 H Creatinine 3.2 H Glucose 309 H POC Glucose 291 H Lactic Acid 2.50 H* Calcium 7.2 L Phosphorus Magnesium AST Alkaline Phosphatase Total Protein Albumin Urine WBC (Auto) 12/13/21 12/13/21 12/13/21 04:29 04:29 05:20 WBC RBC 3.11 L Hgb 10.0 L D Hct 32.1 L D MCV 103 H MCH MCHC 31 L RDW Plt Count 71 L Seg Neuts % (Manual) 97.0 H Lymphocytes % (Manual) 0 L Seg Neutrophils # Man 9.6 H Lymphocytes # (Manual) 0.0 L ABG pO2 ABG Hemoglobin Sodium 161 H* Potassium Chloride 121.1 H Carbon Dioxide BUN 124 H Creatinine 3.0 H Glucose 400 H POC Glucose 352 H Lactic Acid Calcium 7.2 L Phosphorus Magnesium AST Alkaline Phosphatase Total Protein Albumin Urine WBC (Auto) Chest x-ray: report reviewed, image reviewed Additional Studies: CHEST 1 VIEW 12/11/2021 7:02 PM INDICATION / CLINICAL INFORMATION: Lightheadedness/Dizziness. COMPARISON: None available. FINDINGS: SUPPORT DEVICES: None. HEART / MEDIASTINUM: No significant abnormality. LUNGS / PLEURA: Bilateral lower lobe opacities. Mild elevation right hemidia phragm No pneumothorax.
--- NOTE | 2021-12-13 18:04 | Electrocardiograph Report ---
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
== END 2021-12-13 12:35 | disposition hospice, inpatient (51) | DRG 871 ==
LOC: ED 17:24 → CC1 12-12 06:32 → 4A 12-12 15:25
PROVIDERS: ADMIT Internal Medicine Geriatric Medicine; ATTEND Internal Medicine
PROC: 4A033R1 Measurement of Arterial Saturation, Peripheral, Percutaneous Approach (ICD-10-PCS; principal; 2021-12-11)
DX: A41.9 Sepsis, unspecified organism (principal); E11.10 Type 2 diabetes mellitus with ketoacidosis without coma; J69.0 Pneumonitis due to inhalation of food and vomit; N17.9 Acute kidney failure, unspecified; E87.0 Hyperosmolality and hypernatremia; G93.40 Encephalopathy, unspecified; Z20.822 Contact with and (suspected) exposure to COVID-19; Z66 Do not resuscitate; R65.20 Severe sepsis without septic shock; F31.9 Bipolar disorder, unspecified; G40.909 Epilepsy, unspecified, not intractable, without status epilepticus; D69.6 Thrombocytopenia, unspecified; Z51.5 Encounter for palliative care; Z85.46 Personal history of malignant neoplasm of prostate
CPT/HCPCS: 36415; 71045; 80048; 80053; 81001; 82010; 82140; 82803; 82962; 83735; 84100; 84484; 85007; 85025; 87040; 93005; 99292; G0378; J3490; Q9967; J0692; J1815; J1956; J2060; J7030; J7120; U0003